=== PATIENT | male | born 1950 | race Caucasian/White ===

== ENCOUNTER → 2017-11-03 | Outpatient (CLI) | payer OTHER ==
[~2017-11-03] MED LIST: ALEVE; ASPIR 8181 M1 PO; ASPIRIN; FISH OIL; VIT B; VITAMIN D
== END | disposition home or self-care (01) ==
DX: Z01.818 Encounter for other preprocedural examination (principal); M16.12 Unilateral primary osteoarthritis, left hip; R26.2 Difficulty in walking, not elsewhere classified; M25.552 Pain in left hip; M25.652 Stiffness of left hip, not elsewhere classified; Z74.1 Need for assistance with personal care
CPT/HCPCS: 97161 GP; 97165 GO; 97530 GP; 97535 GO

== ENCOUNTER 2017-11-29 22:06 | Inpatient (IN) | payer BC ==
[~2017-11-29] VITALS: Ht 180.3 cm; Wt 97.7 kg
[~2017-11-29 22:06] MED LIST changes: +CELEBREX200 MG PO; +LO-DOSE ASPIRIN81 M2 PO; +TYLENOL ARTHRI650 MG PO
[2017-11-30 09:48] VITALS: BP 127/85
[2017-11-30 14:47] LABS: HEMATOCRIT 36.7 % (38.0-50.0); HEMOGLOBIN 11.9 G/DL (12.5-16.6); MCH 30.8 PG (29.0-34.0); MCHC 32.4 G/DL (30.0-36.0); MCV 95.1 FL (86-99); PLATELET COUNT 200 K/uL (156-360); RBC DIS.WIDTH-CV 12.3 % (11.8-14.6); RBC DIS.WIDTH-SD 42.8 % (39-53); RED BLOOD COUNT 3.86 M/uL (4.00-5.50); WHITE BLOOD COUNT 7.3 K/uL (4.1-10.2)
[2017-11-30 15:52] VITALS: BP 149/86
[2017-11-30 19:51] VITALS: BP 148/96
[2017-12-01] VITALS (7 sets, daily range): BP systolic 102–128; BP diastolic 59–78
[2017-12-01 07:14] LABS: HEMATOCRIT 33.5 % (38.0-50.0); HEMOGLOBIN 10.9 G/DL (12.5-16.6); MCV 94.4 FL (86-99)
[2017-12-01 07:38] LABS: CHLORIDE 104 MEQ/L (99-109); CREATININE 0.9 MG/DL (0.6-1.3); GFR ESTIMATE (CALCULATED) > 59 mL/min/ (58.99-99999); GLUCOSE 112 mg/dL (70-99); POTASSIUM 4.2 MEQ/L (3.7-5.4); SODIUM 137 MEQ/L (136-147); UREA NITROGEN (BUN) 15 mg/dL (9-23)
[2017-12-02 04:19] VITALS: BP 120/72
[2017-12-02 08:00] VITALS: BP 132/69
[2017-12-02] MEDS ORDERED: SENNA PLUS TAB1 EACH PO (08:47)
[2017-12-02] MEDS ORDERED: LOVENOX40 MG/0.4 SC (08:48)
[2017-12-02] MEDS ORDERED: OXYCODONE HCL5 MG PO (08:48)
[2017-12-02 12:32] VITALS: BP 106/68
== END 2017-12-02 14:53 | disposition home health service (06) | DRG 470 ==
LOC: ENRESERV 22:06 → 2SOUTH 11-30 02:35 → 3WEST 11-30 09:01 → 2SOUTH 11-30 15:42 → 3WEST 12-02 14:53
PROVIDERS: Orthopaedic Surgery
PROC: 0SRB0JA Replacement of Left Hip Joint with Synthetic Substitute, Uncemented, Open Approach (ICD-10-PCS; principal; 2017-11-30)
DX: M16.12 Unilateral primary osteoarthritis, left hip (principal); E66.9 Obesity, unspecified; Z96.653 Presence of artificial knee joint, bilateral; Z79.82 Long term (current) use of aspirin; Z68.32 Body mass index [BMI] 32.0-32.9, adult
CPT/HCPCS: 73501; 80048; 85014; 85018; 85027; 97530 GP; J0131; J0330; J0690; J1100; J1170; J1200; J1650; J2250; J2405; J3010; J7050